=== PATIENT | female | born 1985 | race Two or more races ===

== ENCOUNTER 2020-09-27 02:23 | Emergency (ER) | payer MEDICAID, OTHER ==
[~2020-09-27] VITALS: Ht 160 cm; Wt 83.0 kg
[2020-09-27 02:46] LABS: Basophils # (auto) 0 10 ^3/uL (0-0.2); Basophils % (auto) 0.4 % (0.0-2.0); Eosinophils # (auto) 0.1 10 ^3/uL (0-0.8); Eosinophils % (auto) 0.8 % (0.0-7.0); Hematocrit 44.4 % (36.0-46.0); Hemoglobin 15.1 g/dL (12.2-16.2); Lymphocytes # (auto) 2.8 10 ^3/uL (0.4-5.4); Lymphocytes % (auto) 27.1 % (10.0-50.0); Mean Corpuscular Hemoglobin 28.7 pg (28.0-32.0); Mean Corpuscular Volume 84.6 fL (80.0-100.0); Monocytes # (auto) 0.9 10 ^3/uL (0-1.3); Monocytes % (auto) 8.7 % (0.0-12.0); Neutrophils # (auto) 6.5 10 ^3/uL (1.6-8.6); Nucleated Red Blood Cells % 0.1 %; Platelet Count (auto) 380 10^3/uL (140-450); Red Blood Cells 5.25 10^6/uL (4.0-5.20); Red Cell Distribution Width 13.6 % (11.8-14.3); White Blood Cell 10.3 10^3/uL (4.4-10.8)
[2020-09-27 03:04] LABS: INR 0.96 (0.9-1.15); Partial Thromboplastin Time 23.1 sec (23.0-31.2)
[2020-09-27 03:06] LABS: Alanine Aminotransferase 276 U/L (13-56); Anion Gap 6 (5-15); Aspartate Aminotransferase 56 U/L (15-37); Blood Urea Nitrogen 7 mg/dL (7-18); Calcium 8.7 mg/dL (8.5-10.1); Carbon Dioxide 27 mmol/L (21-32); Chloride 103 mmol/L (98-107); GFR African American 95 mL/min; GFR Non-African American 79 mL/min; Glucose 123 mg/dL (74-106); Magnesium 2.3 mg/dL (1.6-2.6); Potassium 3.5 mmol/L (3.5-5.1); Sodium 136 mmol/L (136-145)
[2020-09-27 03:11] LABS: Alkaline Phosphatase 83 U/L (45-117); Bilirubin, Total 0.4 mg/dL (0.2-1.0); Total Protein 8.1 g/dL (6.4-8.2)
[2020-09-27] MEDS ORDERED: ERGO1CAP12 PO (07:51)
[2020-09-27] MEDS ORDERED: URSO300C9 PO (07:51)
[2020-09-27] MEDS ORDERED: CITA-77 PO (07:51)
[2020-09-27] MEDS ORDERED: NORTREL (07:51)
[2020-09-27 08:09] VITALS: BP 117/71
[2020-09-27] MEDS ORDERED: ASPirin 81 mg TAB PO ONE (08:45)
[2020-09-27] MEDS ORDERED: LORazepam 0.5 MG TAB PO ONE (08:45)
== END 2020-09-27 09:20 | disposition home or self-care (01) ==
LOC: ER 02:24
DX: R07.89 Other chest pain (principal); F41.9 Anxiety disorder, unspecified; Z79.899 Other long term (current) drug therapy
CPT/HCPCS: 36415; 71045; 80053; 83735; 83880; 84443; 84484; 85025; 85610; 85730; 93005